=== PATIENT | male | born 1960 | race Caucasian/White ===

== ENCOUNTER 2020-03-20 22:06 | Observation (INO) ==
[2020-03-20] MEDS ORDERED: Ipratropium/Albuterol Neb 3 ML IH ONE (22:22)
[2020-03-20 22:31] LABS: Basophils % 0.1 %; Eosinophils # 0.1 K/mcL (0.0-0.6); Eosinophils % 1.2 %; Hematocrit 37.6 % (37.5-50.1); Hemoglobin 11.1 g/dL (12.9-16.9); Immature Granulocytes % 0.7 % (0-4); Lymphocytes # 1.4 K/mcL (0.6-4.6); Mean Corpuscular HGB Conc 29.5 g/dL (31.6-35.5); Mean Corpuscular Hemoglobin 27.9 pg (28.0-33.3); Mean Corpuscular Volume 94.5 fL (83.0-100.0); Mean Platelet Volume 10.8 fL (9.4-12.4); Monocytes # 1.1 K/mcL (0.0-1.3); Monocytes % 11.3 %; Neutrophils # 6.8 K/mcL (1.6-8.9); Platelet Count 158 K/mcL (140-400); Red Blood Count 3.98 M/mcL (4.19-5.50); Red Cell Distribution Width 16.9 % (11.5-14.5); Segmented Neutrophils % 71.7 %; White Blood Count 9.4 K/mcL (4.3-11.1)
[2020-03-20 22:36] LABS: INR 1.4; Prothrombin Time 15.4 Seconds (9.4-12.1)
[2020-03-20 22:42] LABS: Bilirubin,Urine Negative (Negative); Blood,Urine Negative (Negative); Clarity,Urine Clear (Clear); Color,Urine Yellow (Yellow); Glucose,Urine (UA) 100 mg/dL (Normal); Ketones,Urine Negative (Negative); Leukocyte Esterase,Urine Negative (Negative); Nitrite,Urine Negative (Negative); Protein,Urine Negative (Neg-Trace); Urobilinogen,Urine Normal (Normal)
[2020-03-20 22:45] LABS: Bacteria,Urine Few per hpf (None-Few); Hyaline Casts,Urine Few per lpf (None Seen); Squamous Epithelial Cell,Urine Few per hpf (None-Few)
[2020-03-20 22:46] LABS: WBC,Urine 0-3 per hpf (0-3)
[2020-03-20 22:47] LABS: Alanine Aminotransferase 15 Units/L (7-52); Albumin 4.1 g/dL (3.5-5.7); Albumin/Globulin Ratio 1.2 (1.1-2.2); Alkaline Phosphatase 78 Units/L (34-104); Aspartate Amino Transferase 13 Units/L (13-39); BUN/Creatinine Ratio 14 (6-26); Bilirubin,Direct 0.3 mg/dL (0.0-0.2); Bilirubin,Indirect 0.5 mg/dL (0.0-1.0); Bilirubin,Total 0.8 mg/dL (0.3-1.0); Blood Urea Nitrogen 19 mg/dL (8-23); Calcium 9.2 mg/dL (8.6-10.3); Carbon Dioxide 39 mEq/L (23-29); Chloride 94 mEq/L (98-107); Globulin 3.3 g/dL (2.4-3.5); Glucose 295 mg/dL (70-105); Osmolality,Calculated 297 (280-300); Potassium 4.7 mEq/L (3.5-5.1); Sodium 137 mEq/L (136-145); Total Protein 7.4 g/dL (6.4-8.9); eGFR For African Americans > 60 (> 60); eGFR For Non-African Americans 53 (> 60)
[2020-03-20 22:52] LABS: Troponin I < 0.03 ng/mL (< 0.04)
[2020-03-20] MEDS ORDERED: Furosemide 40 MG/4 ML VIAL IVP ONE (23:21)
[2020-03-21] MEDS ORDERED: ALPRAZolam 1 MG TABLET PO PRN (02:33)
[2020-03-21] MEDS ORDERED: *HR* OxyCODONE/APAP 7.5/325 TABLET PO PRN (02:33)
[2020-03-21] MEDS ORDERED: Ondansetron 4 MG/2 ML VIAL IVP PRN (02:33)
[2020-03-21] MEDS ORDERED: Naloxone 0.4 MG/ML INJ IVP PRN (02:33)
[2020-03-21] MEDS ORDERED: D5% in Water 1,000 ML IVC PRN (03:21)
[2020-03-21] MEDS ORDERED: *HR* Dextrose 50 % in Water (Vial) 50 ML VIAL IVP PRN (03:21)
[2020-03-21] MEDS ORDERED: Dextrose Gel 15 GM/37.5 ML TUBE PO PRN ×2 (03:21)
[2020-03-21] MEDS: Ipratropium/Albuterol Neb 3 ML IH SCH ×3 (04:18→15:52)
[2020-03-21 05:42] LABS: ABG Base Excess 7 mEq/L (-2 to 3); ABG HCO3 36 mEq/L (21-27); ABG Oxygen Saturation 83 % (95-98); ABG PCO2 75 mmHg (35-45); ABG PH 7.29 pH Units (7.32-7.45); ABG PO2 55 mmHg (85-104); ABG TCO2 38 mEq/L (20-26)
[2020-03-21] MEDS ORDERED: *HR* Metformin 500 MG TABLET PO SCH ×2 (08:00→17:00)
[2020-03-21] MEDS: Insulin LISPRO 300 UNITS/3 ML VIAL SQ SCH ×2 (08:42→12:30)
[2020-03-21] MEDS ORDERED: Apixaban 5 MG TABLET PO SCH (09:00)
[2020-03-21] MEDS ORDERED: hydrALAZINE 25 MG TABLET PO SCH (09:00)
[2020-03-21] MEDS ORDERED: *HR* Amiodarone 200 MG TABLET PO SCH (09:00)
[2020-03-21] MEDS ORDERED: Metoprolol 100 MG TABLET PO SCH (09:00)
[2020-03-21] MEDS ORDERED: allopurinoL 100 MG TABLET PO SCH (09:00)
[2020-03-21] MEDS ORDERED: NON-FORMULARY MEDICATION 1 EACH EACH (Insulin Aspart [Novolog Flexpen] 100 UNIT) SQ SCH (09:00)
[2020-03-21] MEDS ORDERED: Spironolactone 25 MG TABLET PO SCH (09:00)
[2020-03-21] MEDS ORDERED: Aspirin 81 MG TAB.CHEW PO SCH (09:00)
[2020-03-21] MEDS ORDERED: Furosemide 40 MG TABLET PO SCH (09:00)
[2020-03-21] MEDS: Gabapentin 400 MG CAPSULE PO SCH ×2 (11:30→16:08)
[2020-03-21] MEDS ORDERED: Insulin DETEMIR 100 UNIT/ML per UNIT SQ ONE (12:45)
[2020-03-21 14:48] VITALS: BP 137/69
[2020-03-21] MEDS ORDERED: GlipiZIDE 5 MG TABLET PO SCH (17:00)
[2020-03-21] MEDS ORDERED: Insulin LISPRO 300 UNITS/3 ML VIAL SQ SCH (21:00)
[2020-03-21] MEDS ORDERED: QUEtiapine Fumarate 25 MG TABLET PO SCH (21:00)
[2020-03-21] MEDS ORDERED: Insulin DETEMIR 100 UNIT/ML X5UNITS SQ SCH (21:00)
[2020-03-22] MEDS ORDERED: *HR* Amiodarone 200 MG TABLET PO SCH (09:00)
== END 2020-03-21 17:07 | disposition home or self-care (01) ==
LOC: EMEROOGRE 22:06 → INPGRE 22:06
PROVIDERS: ADMIT Family Medicine; ATTEND Family Medicine

== ENCOUNTER 2020-03-31 19:38 | Observation (INO) ==
[2020-03-31 20:34] LABS: Basophils % 0.1 %; Eosinophils # 0.1 K/mcL (0.0-0.6); Eosinophils % 1.7 %; Hematocrit 38.2 % (37.5-50.1); Hemoglobin 11.5 g/dL (12.9-16.9); Immature Granulocytes % 0.5 % (0-4); Lymphocytes # 1.3 K/mcL (0.6-4.6); Mean Corpuscular HGB Conc 30.1 g/dL (31.6-35.5); Mean Corpuscular Hemoglobin 27.7 pg (28.0-33.3); Mean Platelet Volume 11.6 fL (9.4-12.4); Monocytes % 12.6 %; Neutrophils # 5.1 K/mcL (1.6-8.9); Platelet Count 159 K/mcL (140-400); Red Blood Count 4.15 M/mcL (4.19-5.50); Red Cell Distribution Width 16.3 % (11.5-14.5); Segmented Neutrophils % 68.1 %; White Blood Count 7.6 K/mcL (4.3-11.1)
[2020-03-31 20:40] LABS: INR 1.9; Prothrombin Time 21.4 Seconds (9.4-12.1)
[2020-03-31 20:51] LABS: Magnesium 1.7 mg/dL (1.6-2.6)
[2020-03-31 20:52] LABS: Troponin I < 0.03 ng/mL (< 0.04)
[2020-03-31 21:00] LABS: Alanine Aminotransferase 11 Units/L (7-52); Albumin/Globulin Ratio 1.2 (1.1-2.2); Alkaline Phosphatase 77 Units/L (34-104); Aspartate Amino Transferase 18 Units/L (13-39); BUN/Creatinine Ratio 17 (6-26); Bilirubin,Total 0.7 mg/dL (0.3-1.0); Blood Urea Nitrogen 24 mg/dL (8-23); Calcium 9.1 mg/dL (8.6-10.3); Carbon Dioxide 41 mEq/L (23-29); Chloride 91 mEq/L (98-107); Globulin 3.3 g/dL (2.4-3.5); Glucose 217 mg/dL (70-105); Osmolality,Calculated 295 (280-300); Potassium 3.9 mEq/L (3.5-5.1); Sodium 137 mEq/L (136-145); Total Protein 7.3 g/dL (6.4-8.9); eGFR For African Americans > 60 (> 60); eGFR For Non-African Americans 51 (> 60)
[2020-03-31] MEDS ORDERED: methylPREDNISolone 125 MG/2 ML VIAL IVP ONE (21:25)
[2020-03-31] MEDS ORDERED: ALPRAZolam 1 MG TABLET PO PRN (23:45)
[2020-03-31] MEDS ORDERED: Furosemide 80 MG in 0.9 % Sodium Chloride 50 ML IV SCH (23:45)
[2020-03-31] MEDS ORDERED: Naloxone 0.4 MG/ML INJ IVP PRN (23:45)
[2020-03-31] MEDS ORDERED: 0.9 % Sodium Chloride 1,000 ML IVC SCH (23:45)
[2020-03-31] MEDS ORDERED: Ipratropium/Albuterol Neb 3 ML IH PRN (23:45)
[2020-04-01 00:27] LABS: ABG Base Excess 11 mEq/L (-2 to 3); ABG HCO3 43 mEq/L (21-27); ABG Oxygen Saturation 74 % (95-98); ABG PCO2 95 mmHg (35-45); ABG PH 7.26 pH Units (7.32-7.45); ABG PO2 48 mmHg (85-104); ABG TCO2 46 mEq/L (20-26)
[2020-04-01 01:49] LABS: Mixed Venous Blood pCO2 94 mmHg (44-46); Mixed Venous Blood pH 7.26 pH Units (7.34-7.36); Mixed Venous Blood pO2 60 mmHg (35-45)
[2020-04-01 02:49] LABS: ABG Base Excess 11 mEq/L (-2 to 3); ABG HCO3 42 mEq/L (21-27); ABG Oxygen Saturation 92 % (95-98); ABG PCO2 91 mmHg (35-45); ABG PH 7.27 pH Units (7.32-7.45); ABG PO2 78 mmHg (85-104); ABG TCO2 45 mEq/L (20-26)
[2020-04-01] MEDS: Furosemide 100 MG/10 ML VIAL IVP SCH ×2 (04:11→08:59)
[2020-04-01 07:09] LABS: VBG HCO3 42 mEq/L (21-27); VBG PCO2 93 mmHg (41-51); VBG PH 7.26 pH Units (7.32-7.42); VBG PO2 51 mmHg (25-50)
[2020-04-01 07:28] LABS: Calcium 9.5 mg/dL (8.6-10.3); Potassium 4.5 mEq/L (3.5-5.1)
[2020-04-01] MEDS ORDERED: GlipiZIDE 5 MG TABLET PO SCH (08:00)
[2020-04-01] MEDS ORDERED: *HR* Metformin 500 MG TABLET PO SCH (08:00)
[2020-04-01 08:49] VITALS: BP 117/79
[2020-04-01] MEDS ORDERED: hydrALAZINE 25 MG TABLET PO SCH (09:00)
[2020-04-01] MEDS ORDERED: Gabapentin 400 MG CAPSULE PO SCH (09:00)
[2020-04-01] MEDS ORDERED: Apixaban 5 MG TABLET PO SCH (09:00)
[2020-04-01] MEDS ORDERED: Fenofibrate 54 MG TABLET PO SCH (09:00)
[2020-04-01] MEDS ORDERED: Aspirin 325 MG TABLET PO SCH (09:00)
[2020-04-01] MEDS ORDERED: INSULIN DEGLUDEC 40 UNIT SQ SCH (09:00)
[2020-04-01] MEDS ORDERED: Spironolactone 25 MG TABLET PO SCH (09:00)
[2020-04-01] MEDS ORDERED: Furosemide 40 MG TABLET PO SCH (09:00)
[2020-04-01] MEDS ORDERED: allopurinoL 100 MG TABLET PO SCH (09:00)
[2020-04-01] MEDS ORDERED: *HR* Amiodarone 200 MG TABLET PO SCH (09:00)
[2020-04-01] MEDS ORDERED: Sennosides/Docusate Sodium TABLET PO SCH (09:00)
[2020-04-01] MEDS ORDERED: Metoprolol 100 MG TABLET PO SCH (09:00)
[2020-04-01] MEDS ORDERED: INSULIN ASPART 60 UNIT SQ SCH (09:00)
[2020-04-01] MEDS ORDERED: Budesonide/Formoterol 160/4.5 1 PUFF INH IH SCH (10:00)
[2020-04-01] MEDS ORDERED: QUEtiapine Fumarate 25 MG TABLET PO SCH (21:00)
== END 2020-04-01 12:04 | disposition short-term general hospital (02) ==
LOC: EMEROOGRE 19:38 → INPGRE 19:38
PROVIDERS: ADMIT Family Medicine; ATTEND Family Medicine